=== PATIENT | female | born 1995 | race Caucasian/White ===

== ENCOUNTER 2024-02-23 20:13 | Emergency (ER) | payer BC, SELFPAY ==
[2024-02-23 20:22] VITALS: BP 135/96
[2024-02-23 21:52] VITALS: BMI 22.5
--- NOTE | 2024-02-23 23:05 | ED.GENMED ---
History of Present Illness
General
Chief Complaint: Back Pain
Source: patient
Exam Limitations: none
Time Seen by Provider: 02/23/24 22:08
History of Present Illness
History of Present Illness:
This is a 28 year old female that comes in with c/o low back pain. States that she was in bed and got up to the BR. States that she had sever back pain that dropped her to her knee's. States that the pain shot down her both legs. States that for
the past month her back has been sore but this did not affect her daily life. States that know she can hardly stand up or walk. Denies any injury or falls. 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 States
that right now she is also on Amoxicillin for a sinus infection. Denies any fever, chills, chest pain, SOB, abd pain, nausea, vomiting, diarrhea, headache, dizziness, urinary burning.
Past History
Past History
ED Past Medical History: Other (PCOS, Herniated disc)
ED Past Surgical History: None
Social History
Tobacco: Vaping
Alcohol: Occasional
Personal: Single
Living: with family
Review of Systems
Review of Systems
All Other Systems: ROS reviewed and negative except as documented in HPI and ROS
Constitutional: Reports no symptoms; Denies fever or chills
EENT: Reports no symptoms
Respiratory: Reports no symptoms; Denies cough or trouble breathing
Cardiac: Reports no symptoms; Denies chest pain
ABD/GI: Reports no symptoms; Denies abdominal pain, nausea, vomiting or diarrhea
: Denies dysuria, frequency, incontinence or urgency
Musculoskeletal: Reports back pain (Low back pain)
Skin: Reports no symptoms
Neurological: Reports no symptoms; Denies dizzy or headache
Psychiatric: Reports no symptoms
Phy Exam
General Physical Exam
General Presentation: well appearing and no apparent distress
General age: appears stated age
General Skin: warm and dry
General Habitus: normal
General Mental: alert
General Hydration: appears well hydrated
ENT Exam
ENT Exam: TM's normal, pharynx normal and neck supple
Eye Exam
Eye Exam: EOMI
Cardiovascular Exam
Cardiovascular Exam: regular rate/rhythm, no edema, no murmur and normal peripheral pulses
Pulmonary Exam
Pulmonary Exam: lungs clear, no respiratory distress, no rales, chest non tender, no crackles, no rhonchi, no wheezing and no cough
Gastrointestinal Exam
Gastrointestinal Exam: normal bowel sounds, non tender, soft, no organomegaly, no pulsatile mass, non distended and other (Normal rectal tone)
Musculoskeletal Exam
Musculoskeletal Exam: full ROM, no edema and other (Normal push pulls. Patient able to hold her legs up for 5 seconds. Spinal tenderness lumbar spine and lateral to the spine with palpation. Discomfort with straight leg raise, Able to turn side to
side with left sided discomfort. Able to go up on toes and bend 20 degree's forward)
Skin Exam
Skin Exam: normal color, warm/dry, no rash and no petechia
Psychiatric Exam
Psychiatric Exam: normal mood/affect
Course
Orders/Labs/Results
Orders:
Orders
02/23/24 20:24
CR Lumbar Spine 2 Or 3 Views Urgent
Comment:
Reason For Exam: injury
02/23/24 23:03
Acetaminophen [Tylenol] 1,000 mg PO NOW STA
Dexamethasone Sod Phosphate [Decadron] 10 mg IV NOW STA
Ketorolac [Toradol] 30 mg IV NOW STA
02/23/24 23:04
Test Result ONCE
02/23/24 23:22
CRP [C-Reactive Protein] Urgent
Complete Blood Count/With Diff Urgent
Comprehensive Metabolic Panel Urgent
HCG, Serum Qualitative Screen Urgent
Sed Rate [Erythrocyte Sed Rate] Urgent
02/23/24 23:59
Urinalysis Reflex To Culture Urgent
Date Specimen was Collected: 02/24/24
Time Specimen was Collected: 00:05
02/24/24 00:08
Urine Microscopic Reflex Cult Urgent
Abnormal Lab Results
02/23/24 02/24/24
23:22 00:08
WBC 13.5 H 10^3/uL
(4.8-10.8)
Abs Immat Gran (auto) 0.1 H 10^3/uL
(0-0.05)
Absolute Neuts (auto) 11.5 H 10^3/uL
(1.4-6.5)
Neutrophils % 84.8 H %
(42.2-75.2)
Lymphocytes % 9.5 L %
(20.5-51.1)
C-Reactive Protein 11.50 H mg/L
(0.0-10.00)
Urine Ketones 3+ A
(Negative)
Leukocyte Esterase Rfl Trace A
(Negative)
Urine RBC 3-6 A /HPF
(0-2)
Urine Bacteria (Reflex) Few A
(Negative)
02/23/24 23:22
02/23/24 23:22
Leukocytosis, CRP very slightly elevated. Sed rate normal at 12.o HCG negative. Urine negative for infection.
Vital Signs
Initial and Last Documented VS:
Initial Vital Signs
Temp Pulse Resp BP Pulse Ox
98.7 F 124 18 135/96 96
02/23/24 20:22 02/23/24 20:22 02/23/24 20:22 02/23/24 20:22 02/23/24 20:22
Last Documented Vital Signs
Temp Pulse Resp BP Pulse Ox
98.7 F 88 18 117/81 99
02/23/24 20:22 02/24/24 00:15 02/24/24 00:15 02/24/24 00:15 02/24/24 00:15
MDM/Problems Addressed
Differential Diagnosis Includes:
Herniated disc
MDM/Problems Addressed:
This is a 28 year old female that comes in with c/o low back pain. States that she got OOB and when she stood up the pain dropped her to her knee's. States that it has been sore the past month but not like this.
Will check labs, Inflammatory markers and get CT of the lumbar spine. Will medicate for pain and give steroids to help decrease inflammation.
Back into see patient. Patient states that she is feeling better. Patient able to get OOB and walk to the bathroom for a urine. Explained that the X-ray shows some degenerative changes in L5/S1. Patient can use Tylenol and Ibuprofen for pain. Will
get urine. Follow up with the clinical rehabilitation specialist for further evaluation. Patient to return with any concerns.
Chronic conditions affecting care:
Herniated disc
Acute Exacerbation and/or Progression of Chronic Illness:
Herniated disc
*Radiology
Radiology exam reviewed: preliminary read by ED provider (Lumbar spine- Negative for fracture or herniation) and radiology read reviewed (Lumbar spine-Mild L5/S1 degenerative disc disease. Moderate fecal material throughout the colon )
*Pulse Oximetry
Patient hypoxic: no
*EKG
Interpreted by ED Provider?: NA
Rate: EKG- N/A
*Manager Information Interpretation
Rate: Manager Information- N/A
*Critical Care Note
Total Time (30-74mins, 75-104mins- exclusive of procedures): Not Applicable
ED Attending Note
-
Portions of this chart may have been created with voice recognition software.� Occasional wrong word or��sound alike� substitutions may have occurred due to the inherent limitations of voice recognition software.
Discharge Plan
Departure
Patient Disposition: Home (Routine Discharge)
Date of Disposition: 02/24/24
Time of Disposition: 00:45
Patient with high blood pressure during this ER visit?: Yes
Condition: Good
Covid-19: Not Applicable
Discharge Problem:
Low back pain
Instructions: Low Back Pain (DC)
Prescriptions:
No Action
desvenlafaxine succinate [Pristiq] 50 mg Tablet Extended Release 24 Hr
50 mg PO DAILY
Referrals:
Niko Dennis MD [Family Provider] - Call in 1-3 days for appt
Td Still MD [Active] - As needed
Activity Restrictions/Additional Instructions:
As discussed, your X-ray shows that you have Degenerative changes of L5/S1. You may use Tylenol and Ibuprofen and alternate them for pain. You may use heat or ice to the low back which ever works for you. Follow up with the family doctor as needed.
You have also been given the name of an clinical rehabilitation specialist for further evaluation. IF YOU HAVE ANY OTHER CONCERNS PLEASE RETURN TO THE EMERGENCY ROOM.
Interventions
Interventions:
*Risk Screen - Suicide Last Done: 02/23/24 20:24
*General Assessment Last Done: 02/23/24 21:51
*Neglect/Abuse Screening Last Done: 02/23/24 20:24
ED- Fall Risk Assessment Last Done: 02/23/24 21:53
*ED COVID-19 Vaccine History Last Done: 02/23/24 21:51
ED-Musculoskeletal Assessment Last Done: 02/23/24 22:21
Discharge Date and Time
Print Language: SUDANESE
[2024-02-23] MEDS: TORADOL 30 MG IV (23:23)
[2024-02-23] MEDS: TYLENOL 1000 MG PO (23:23)
[2024-02-23] MEDS: DECADRON 10 MG IV (23:23)
[2024-02-23 23:37] LABS: % Basophils 0.6 % (0-2); % Eosinophils 0.6 % (0-6); % Immature Granulocytes 0.4 % (0-0.5); % Lymphocytes 9.5 % (20.5-51.1); % Monocytes 4.1 % (1.7-9.3); % Neutrophils 84.8 % (42.2-75.2); Absolute Basophils 0.1 10^3/uL (0-0.2); Absolute Eosinophils 0.1 10^3/uL (0-0.7); Absolute Immature Granulocytes 0.1 10^3/uL (0-0.05); Absolute Lymphocytes 1.3 10^3/uL (1.2-3.4); Absolute Monocytes 0.6 10^3/uL (0.1-0.6); Absolute Neutrophils 11.5 10^3/uL (1.4-6.5); Hematocrit 39.9 % (37.0-47.0); Hemoglobin 13.4 g/dL (12.0-16.0); Mean Corp Hgb Conc. 33.6 g/dL (33.0-37.0); Mean Corpuscular Hgb 30.5 pg (27.0-31.0); Mean Corpuscular Volume 90.9 fL (81.0-99.0); Mean Platelet Volume 8.6 fL (7.4-10.4); Nucleated Red Blood Cells % 0 %; Platelet Count 353 10^3/uL (130-400); Red Blood Cell Count 4.39 10^6/uL (4.20-5.40); Red Cell Dist. Width 11.7 % (11.5-14.5); White Blood Cell Count 13.5 10^3/uL (4.8-10.8)
[2024-02-23 23:52] LABS: HCG, Serum Qualitative Screen Negative
[2024-02-23 23:59] LABS: ALT (SGPT) 15 U/L (0-35); AST (SGOT) 22 U/L (14-36); Albumin 4.1 g/dl (3.5-5.0); Alkaline Phosphatase 53 U/L (38-126); Blood Urea Nitrogen 10 mg/dl (7-17); Calcium 8.9 mg/dl (8.4-10.2); Carbon Dioxide 24 mmol/L (22-30); Chloride 102 mmol/L (98-107); Estimated Creatinine Clearance 121 ml/min; Glucose 93 mg/dl (70-99); Potassium 4.1 mmol/L (3.5-5.1); Sodium 135 mmol/L (135-145); Total Bilirubin 0.5 mg/dl (0.2-1.3); Total Protein 6.7 g/dl (6.3-8.2); eGFR > 60.00
[2024-02-24 00:04] LABS: Erythrocyte Sed Rate 12 mm/hour (0-20)
[2024-02-24 00:14] LABS: Urine Albumin Negative (Neg - Trace); Urine Bilirubin Negative (Negative); Urine Character Clear (Clear); Urine Color Yellow; Urine Glucose Negative (Negative); Urine Ketone 3+ (Negative); Urine Leukocyte Trace (Negative); Urine Nitrite Negative (Negative); Urine Occult Blood Negative (Negative); Urine Urobilinogen 1+ (Neg - 1+)
[2024-02-24 00:15] VITALS: BP 117/81
[2024-02-24 00:39] LABS: Urine Mucus Moderate
[2024-02-24 00:41] LABS: Urine Bacteria Few (Negative)
== END 2024-02-24 00:56 | disposition home or self-care (01) ==
LOC: EMR 20:13
PROVIDERS: Clinical Nurse Specialist Family Health; EMERGENCY PHYSICIAN Emergency Medicine; FAMILY PHYSICIAN Specialist
DX: M54.50 Low back pain, unspecified (principal); M47.817 Spondylosis without myelopathy or radiculopathy, lumbosacral region; F17.290 Nicotine dependence, other tobacco product, uncomplicated
CPT/HCPCS: 96374; 96375; 99284; 72100; 80053; 81003; 81015; 84703; 85025; 85652; 86140